=== PATIENT | female | born 1955 | race Two or more races ===

== ENCOUNTER 2020-12-11 09:30 | Inpatient (IN) | payer OTHER ==
[~2020-12-11] VITALS: Ht 152.4 cm; Wt 65.8 kg
[2020-12-11] MEDS ORDERED: AVALIDE 300-121 EACH PO (10:30)
[2020-12-11] MEDS ORDERED: CRESTOR10 MG PO (10:30)
[2020-12-11] MEDS ORDERED: DILTIAZEM ER300 MG PO (10:30)
[2020-12-11] MEDS ORDERED: VITAMIN D3 PO (10:31)
[2020-12-11] MEDS ORDERED: VITAMIN B122500 MCG PO (10:32)
[2020-12-17] MEDS ORDERED: VITAMIN D3250 MC1 PO (08:10)
[2020-12-17] MEDS ORDERED: OMEPRAZOLE40 MG (08:10)
[2020-12-17] MEDS ORDERED: DICLOFENAC SODI75 MG (08:11)
[2020-12-17] MEDS ORDERED: DEXAMETHASONE4 MG (08:11)
== END 2020-12-20 17:19 | disposition home or self-care (01) | DRG 330 ==
LOC: O/R 12-17 06:00 → SURG 12-17 06:00 → SURH 12-17 09:30 → SURG 12-17 11:16
PROVIDERS: ADMIT Colon & Rectal Surgery; ATTEND Colon & Rectal Surgery
PROC: 0DBN4ZZ Excision of Sigmoid Colon, Percutaneous Endoscopic Approach (ICD-10-PCS; 2020-12-17)
PROC: 3E0F7SF Introduction of Other Gas into Respiratory Tract, Via Natural or Artificial Opening (ICD-10-PCS; 2020-12-17)
PROC: 4A033R1 Measurement of Arterial Saturation, Peripheral, Percutaneous Approach (ICD-10-PCS; 2020-12-17)
PROC: 0DBP4ZZ Excision of Rectum, Percutaneous Endoscopic Approach (ICD-10-PCS; principal; 2020-12-17 11:00)
DX: K57.20 Diverticulitis of large intestine with perforation and abscess without bleeding (principal); K92.1 Melena; E11.9 Type 2 diabetes mellitus without complications; E78.00 Pure hypercholesterolemia, unspecified; I11.9 Hypertensive heart disease without heart failure; G43.909 Migraine, unspecified, not intractable, without status migrainosus; D64.9 Anemia, unspecified; Z20.822 Contact with and (suspected) exposure to COVID-19